=== PATIENT | female | born 1990 | race American Indian/Alaskan Native ===

== ENCOUNTER 2019-11-06 21:14 | Outpatient (CLI) | payer SELFPAY ==
[2019-11-06] MEDS ORDERED: hydrOXYzine PAMOATE 25 MG CAP PO ONE (22:05)
[2019-11-06 22:17] VITALS: BP 108/60
== END 2019-11-06 22:08 | disposition home or self-care (01) ==
LOC: TRG 21:14 → APU 21:23 → TRG 22:08
PROVIDERS: ATTEND Obstetrics & Gynecology
DX: O26.893 Other specified pregnancy related conditions, third trimester (principal); R10.9 Unspecified abdominal pain; Z3A.34 34 weeks gestation of pregnancy
CPT/HCPCS: 59025; Q0177